=== PATIENT | male | born 1980 | race Caucasian/White ===

== ENCOUNTER 2018-08-09 10:31 | Observation (INO) ==
[2018-08-09] MEDS ORDERED: Aspirin 325 MG Tablet PO ONE (11:20)
[2018-08-09 11:40] LABS: Baso # (Auto) 0.1 th/mm3 (0.0-0.2); Baso % (Auto) 0.9 % (0.0-2.0); Eos # (Auto) 0.2 th/mm3 (0.0-0.4); Eos % (Auto) 3.5 % (0.0-4.0); Hematocrit 43.8 % (39.0-51.0); Hemoglobin 15.3 gm/dL (13.0-17.0); Lymph # (Auto) 2.2 th/mm3 (1.0-4.8); Lymph % (Auto) 38.1 % (9.0-44.0); Mean Corpuscular HGB Conc 34.8 % (32.0-36.0); Mean Corpuscular Hemoglobin 26.4 pg (27.0-34.0); Mean Corpuscular Volume 75.8 fL (80.0-100.0); Mean Platelet Volume 8.2 fL (7.0-11.0); Mono # (Auto) 0.5 th/mm3 (0.0-0.9); Mono % (Auto) 9.4 % (0.0-8.0); Neut # (Auto) 2.8 th/mm3 (1.8-7.7); Neut % (Auto) 48.1 % (16.0-70.0); Platelet Count 138 th/mm3 (150-450); Red Blood Count 5.78 mil/mm3 (4.50-5.90); Red Cell Distribution Width 13.8 % (11.6-17.2); White Blood Count 5.7 th/mm3 (4.0-11.0)
--- NOTE | 2018-08-09 11:43 | XR ---
EXAM DATE: 08/09/2018 11:36 AM EST AGE/SEX: 38 years / Male INDICATIONS: Left sided numbness in upper abdomen, chest, arm, and neck. CLINICAL DATA: This is the patient's initial encounter. Patient reports that signs and symptoms have been present for 1 day and indicates a pain score of 0/10. MEDICAL/SURGICAL HISTORY: None. None. COMPARISON: No prior exams available for comparison. FINDINGS: A single AP view of the chest demonstrates the lungs to be symmetrically aerated without evidence of mass, infiltrate or effusion. The cardiomediastinal contours are unremarkable. Osseous structures a re intact. CONCLUSION: No acute intrathoracic disease. Electronically signed by: Luis Perez MD 08/09/2018 11:42 AM EST
[2018-08-09 11:47] LABS: Activated Partial Thrombo Time 29.8 sec (23.4-31.7); Prothrombin Time 10.1 sec (9.8-11.6)
[2018-08-09 11:58] LABS: Alanine Aminotransferase 61 U/L (12-78); Albumin 4.2 g/dL (3.4-5.0); Anion Gap 6 meq/L (5-15); Aspartate Aminotransferase 35 U/L (15-37); Blood Urea Nitrogen 16 mg/dL (7-18); Calcium 9.4 mg/dL (8.5-10.1); Carbon Dioxide 23.9 meq/L (21.0-32.0); Chloride 107 meq/L (98-107); Glomerular Filtration Rate Greater Than 89 mL/min (>89); Glucose,Random 120 mg/dL (74-106); Lipase 208 U/L (73-393); Sodium 137 meq/L (136-145)
[2018-08-09 12:03] LABS: Alkaline Phosphatase 61 U/L (45-117); Creatine Kinase 210 U/L (39-308); Total Protein 7.5 g/dL (6.4-8.2)
[2018-08-09 12:15] LABS: Creatine Kinase MB 2.2 ng/mL (0.5-3.6)
[2018-08-09] MEDS ORDERED: Acetaminophen 500 MG Tablet PO PRN (13:15)
--- NOTE | 2018-08-09 13:19 | ED ---
HPI General Chief Complaint: Chest Pain Stated Complaint: Tightness chest /left arm complaint/light headed Time Seen by Provider: 08/09/18 11:11 Source: patient and family Mode of arrival: ambulatory Limitations: no limitations History of Present Illness HPI narrative: 38-year-old male who presents to the ED for chest pain. Patient has had chest pain for about 1 hour. Per patient he is traveling from [place] to [place] where he is from. Per patient he came here for vacation for the break. Per patient he has had similar pain in the past when he had a panic attack but he states that this pain feels different in that it is burning and pressure-like and usually when he gets the panic attack is throughout the entire chest and he feels short of breath. He states that he is never radiated to the left arm before into his jaw. Patient currently he is pain-free. Per patient he was pressure-like in the pain was 7 out of 10. was concerned because he did look pale per her. Patient has been also complaining of dizziness that he has had on and off for the past month or so. Per patient he seems to be getting worse and he states that he has been treated for vertigo in the past with success but he feels that this is different as it is getting more progressive with exertion and he feels lightheaded rather than feeling like the room spinning. Related Data Home Medications Medication Instructions Recorded Confirmed No Known Home Medications 08/09/18 08/09/18 Allergies Allergy/AdvReac Type Severity Reaction Status Date / Time Penicillins Allergy Hives Verified 08/09/18 10:40 Review of Systems ROS: all other systems reviewed are negative [facility] Medical History Medical History Anxiety (Acute) Chronic back pain (Acute) Depression (Acute) Vertigo (Acute) Surgical History Surgical History No history of previous surgery (Acute) Family History Family History Mother Hypertension Father Hypertension Social History Social History Substance History: No History of Abuse Second Hand Smoke Exposure: No Smoking Status: Never smoker How Often Do You Have a Drink Containing Alcohol: Monthly or less Hx Recent Travel: Yes (Drove from [place], 14 hour trip week and a half ago) Recent Travel in [facility] within the Last 8 Weeks: No Recent Out of Country Travel within the Last 8 Weeks: No Immunization History Tetanus Immunization: <5 Years Exam Narrative Exam Narrative: GENERAL: Well appearing SKIN: Focused skin assessment warm/dry. HEAD: Atraumatic. Normocephalic. EYES: Pupils equal and round. No scleral icterus. No injection or drainage. ENT: No nasal bleeding or discharge. Mucous membranes pink and moist. Tongue is midline. No Uvula deviation. NECK: Trachea midline. No JVD. CARDIOVASCULAR: Regular rate and rhythm. No murmur appreciated. RESPIRATORY: No accessory muscle use. Clear to auscultation. Breath sounds equal bilaterally. GASTROINTESTINAL: Abdomen soft, non-tender, nondistended. Hepatic and splenic margins not palpable. MUSCULOSKELETAL: No obvious deformities. No clubbing. No cyanosis. No edema. Full range of motion of the upper and lower extremity bilaterally. 2+ pulses bilaterally. NEUROLOGICAL: Awake and alert. No obvious cranial nerve deficits. Motor grossly within normal limits. Normal speech. PSYCHIATRIC: Appropriate mood and affect; insight and judgment normal. Course Initial Documented Vital Signs Temperature 98.5 F 08/09/18 10:38 Pulse Rate 79 08/09/18 10:38 Respiratory Rate 18 08/09/18 10:38 Blood Pressure 151/84 H 08/09/18 10:38 Pulse Oximetry 98 08/09/18 10:38 Last Documented Vital Signs Temperature 98.3 F 08/09/18 14:23 Pulse Rate 73 08/09/18 14:23 Respiratory Rate 20 08/09/18 14:23 Blood Pressure 124/74 08/09/18 14:23 Pulse Oximetry 96 08/09/18 14:23 Medical Decision Making DALIA Attestation DALIA supervised visit: Yes Attestation: I, Dr. Paz, have reviewed the advance practice practitioner's documentation and am in agreement, met with the patient face to face, made the diagnosis, and the medical decision making was done by me. *My assessment and Findings: Chest pain MDM Narrative Medical decision making narrative: 38-year-old male who presents to the ED for evaluation of chest pain. Patient was properly examined was found to have signs and symptoms concerning for ACS. He does have risk factors. Labs and imaging were done and were essentially unremarkable. D-dimer was done as patient has been traveling by car. This was negative. Patient was given aspirin here. No nitro given as patient is completely chest pain-free. Initial EKG and troponin were negative. I had a discussion with my attending Dr. Paz who agrees the patient should be of her chest pain center admission. This was offered to the patient and the family. At this time they appear to be agreeable with admission to the chest pain center. Patient was admitted to the chest pain center by me. Medical Screen Exam Complete: Yes Emergency Medical Condition: Yes Differential Diagnosis Differential Diagnosis: Chest pain versus ACS versus atypical chest pain versus PE Medical Records Medical records reviewed: Yes I reviewed the patient's medical records. Lab Data Lab results reviewed: Yes I reviewed the patient's lab results. Lab results narrative: Troponin and CK-MB negative Result diagrams: 08/09/18 11:25 08/09/18 11:25 Lab Results 08/09/18 08/09/18 08/09/18 Range/Units 11:25 11:25 11:25 WBC 5.7 (4.0-11.0) th/mm3 RBC 5.78 (4.50-5.90) mil/mm3 Hgb 15.3 (13.0-17.0) gm/dL Hct 43.8 (39.0-51.0) % MCV 75.8 L (80.0-100.0) fL MCH 26.4 L (27.0-34.0) pg MCHC 34.8 (32.0-36.0) % RDW 13.8 (11.6-17.2) % Plt Count 138 L (150-450) th/mm3 MPV 8.2 (7.0-11.0) fL Neut % (Auto) 48.1 (16.0-70.0) % Lymph % (Auto) 38.1 (9.0-44.0) % Ashley % (Auto) 9.4 H (0.0-8.0) % Eos % (Auto) 3.5 (0.0-4.0) % Baso % (Auto) 0.9 (0.0-2.0) % Neut # (Auto) 2.8 (1.8-7.7) th/mm3 Lymph # (Auto) 2.2 (1.0-4.8) th/mm3 Ashley # (Auto) 0.5 (0.0-0.9) th/mm3 Eos # (Auto) 0.2 (0.0-0.4) th/mm3 Baso # (Auto) 0.1 (0.0-0.2) th/mm3 WBC Differential . Differential Comment Auto diff final PT 10.1 (9.8-11.6) sec INR 1.0 Ratio APTT 29.8 (23.4-31.7) sec D-Dimer Quant (PE/DVT) Less than 0.19 (0.00-0.50) mg/L FEU Sodium 137 (136-145) meq/L Potassium 4.0 (3.5-5.1) meq/L Chloride 107 (98-107) meq/L Carbon Dioxide 23.9 (21.0-32.0) meq/L Anion Gap 6 (5-15) meq/L BUN 16 (7-18) mg/dL Creatinine 0.87 (0.60-1.30) mg/dL Estimated GFR Greater than 89 (>89) mL/min Random Glucose 120 H (74-106) mg/dL Calcium 9.4 (8.5-10.1) mg/dL Total Bilirubin 0.4 (0.2-1.0) mg/dL AST 35 (15-37) U/L ALT 61 (12-78) U/L Alkaline Phosphatase 61 (45-117) U/L Total Creatine Kinase 210 (39-308) U/L CK-MB (CK-2) 2.2 (0.5-3.6) ng/mL Troponin I Less than 0.02 L (0.02-0.05) ng/mL Total Protein 7.5 (6.4-8.2) g/dL Albumin 4.2 (3.4-5.0) g/dL Lipase 208 (73-393) U/L 08/09/18 Range/Units 14:24 WBC (4.0-11.0) th/mm3 RBC (4.50-5.90) mil/mm3 Hgb (13.0-17.0) gm/dL Hct (39.0-51.0) % MCV (80.0-100.0) fL MCH (27.0-34.0) pg MCHC (32.0-36.0) % RDW (11.6-17.2) % Plt Count (150-450) th/mm3 MPV (7.0-11.0) fL Neut % (Auto) (16.0-70.0) % Lymph % (Auto) (9.0-44.0) % Ashley % (Auto) (0.0-8.0) % Eos % (Auto) (0.0-4.0) % Baso % (Auto) (0.0-2.0) % Neut # (Auto) (1.8-7.7) th/mm3 Lymph # (Auto) (1.0-4.8) th/mm3 Ashley # (Auto) (0.0-0.9) th/mm3 Eos # (Auto) (0.0-0.4) th/mm3 Baso # (Auto) (0.0-0.2) th/mm3 WBC Differential Differential Comment PT (9.8-11.6) sec INR Ratio APTT (23.4-31.7) sec D-Dimer Quant (PE/DVT) (0.00-0.50) mg/L FEU Sodium (136-145) meq/L Potassium (3.5-5.1) meq/L Chloride (98-107) meq/L Carbon Dioxide (21.0-32.0) meq/L Anion Gap (5-15) meq/L BUN (7-18) mg/dL Creatinine (0.60-1.30) mg/dL Estimated GFR (>89) mL/min Random Glucose (74-106) mg/dL Calcium (8.5-10.1) mg/dL Total Bilirubin (0.2-1.0) mg/dL AST (15-37) U/L ALT (12-78) U/L Alkaline Phosphatase (45-117) U/L Total Creatine Kinase 176 (39-308) U/L CK-MB (CK-2) (0.5-3.6) ng/mL Troponin I Less than 0.02 L (0.02-0.05) ng/mL Total Protein (6.4-8.2) g/dL Albumin (3.4-5.0) g/dL Lipase (73-393) U/L Imaging Data Attestation: I personally reviewed and interpreted this imaging study as follows : Radiologist's impression: Chest X-Ray 08/09/18 11:20 CONCLUSION: No acute intrathoracic disease. ECG Data Attestation: I personally reviewed and interpreted this ECG as follows: Interpretation: EKG shows sinus rhythm with no sign of acute ischemia and arrhythmia with by me and attending. Discharge Plan Discharge Disposition Patient Disposition: 30 Still Patient Discharge Condition Condition: Good Discharge Order Discharge Orders: Discharge Order (Routine); Ordered 08/09/18 Ordered By: Aleja Pace Discharge Details Anticipated Discharge Date: 08/09/18 Diagnosis: Chest pain, rule out acute myocardial infarction Physicians Team ED Provider: Cirilo Paz ED Midlevel Provider: João Hurd Primary Care Provider: [facility] Attending Provider: Nikhil Mercado Status ED Status: Left Department Discharge Information Discharge Date/Time: 08/09/18 14:15
[2018-08-09 14:24] VITALS: BP 124/74; PULSE 73; RESP 20; TEMP 98.3; O2SAT 96
--- NOTE | 2018-08-09 14:38 | P.HPCA ---
History of Present Illness Primary Care Physician: [facility] Chief Complaint: Chest pain History of Present Illness: 38 year old male with history of chronic back pain, anxiety, and depression present to ER for further evaluation of chest pain. He, his and 6 children are returning home to [place] after visiting [place] for Thanksgiving. While driving he developed chest pain. Onset 1000. Location left anterior chest. Characterized as tightness with an associated heat/chilling sensation from left upper quad which radiated to left anterior chest, left side neck, left shoulder and arm. No weakness of arm. Moderate in severity. No associated symptoms of nausea, vomiting, dyspnea, or diaphoresis. Experienced a metallic taste during episode. reports him looking pale. No precipitating or relieving factors. Denies similar pain in the past. Endorses history of panic attacks, however current episode did not remind him of past panic attacks. No current chest pain, reports discomfort eased up gradually. Since episode experiencing intermittent, short "waves" of heat described as barely noticeable. Reports being in his general state of health with an increase in fatigue and dizzy spells the last month. History of vertigo and denies dizziness being similar. No precipitating factors to dizziness, but endorses dizziness can be positional. No fever, chills, recent illness, or injury. Does not feel he currently is under increase stress. Does report an increase stress this year, but felt he was coping and dealing well with stress. Does not take any medication for anxiety or depression due to being sensitive to most medication. Past cardiac testing None Social history No known hypertension, hyperlipidemia, or diabetes. Lifelong non-smoker. Occasional alcohol use socially on weekends, drinking between 2-3 beers. No recreational drug use. . 6 children. Endorses active lifestyle, however often limited due to chronic back pain. Family history Noncontributory for early onset cardiovascular disease - Diagnosis (1) Chest pain of unknown etiology Review of Systems All other systems reviewed negative except as stated in HPI [facility] - History History Provided By: Patient - Medical History Medical History: Medical History (Last Updated 08/09/18 @ 14:31 by SONNY Stanford) Anxiety Chronic back pain Depression Vertigo - Surgical History Surgical History: Surgical History (Last Reviewed 08/09/18 @ 14:33 by SONNY Stanford) No history of previous surgery - Family History Family History: Family History (Last Updated 08/09/18 @ 14:33 by SONNY Stanford) Mother Hypertension Father Hypertension - Social History I have reviewed the patient's Social History: Yes - Tobacco History Second Hand Smoke Exposure: No Tobacco Use In Past 30 Days: No Smoking Status: Never smoker - Alcohol History How Often Do You Have a Drink Containing Alcohol: 2 to 4 times a month (2-3 beers on weekends) - Substance Use History Substance History: No History of Abuse - Travel History History of Recent Travel: Yes (Drove from [place], 14 hour trip week and a half ago) Recent Travel in the [facility] Within the Last 8 Weeks: No Recent Travel Out of the Country Within the Last 8 Weeks: No - Immunization History Tetanus Immunization: <5 Years Medications and Allergies Active Medications: Active Medications Acetaminophen (Tylenol) 500 mg PO Q4H PRN PRN Reason: HEADACHE Aspirin (Aspirin) 325 mg PO DAILY BONNIE Nitroglycerin (Nitrostat Sl) 0.4 mg SL Q5M PRN PRN Reason: CHEST PAIN Ondansetron HCl (Zofran Inj) 4 mg IV.PUSH Q6H PRN PRN Reason: NAUSEA Sodium Chloride (Ns Flush) 2 ml IV.FLUSH BID BONNIE Sodium Chloride (Ns Flush) 2 ml IV.FLUSH PRN PRN PRN Reason: FLUSH AFTER USING IV ACCESS Allergies Allergy/AdvReac Type Severity Reaction Status Date / Time Penicillins Allergy Hives Verified 08/09/18 10:40 Home Medications Medication Instructions Recorded Confirmed Type No Known Home Medications 08/09/18 08/09/18 History Exam Vital signs: Vital Signs 08/09/18 10:38 08/09/18 10:40 Temperature 98.5 F Pulse Rate 79 82 Respiratory Rate 18 19 Blood Pressure 151/84 H 138/89 Pulse Oximetry 98 98 Intake & Output 08/08/18 08/09/18 08/09/18 18:59 06:59 18:59 Weight 108.862 kg Narrative: GENERAL: Alert WN, WD, NAD, pleasant, mildly, male who appears older than stated age HEAD: NC, AT EYES: Sclera clear, conjunctiva without injection, pupils equal and round ENT: Mucous membranes pink and moist CV: RRR, without murmur, rub, gallop, no JVD, S1-S2. Chest wall nontender to palpation. RESP: Clear lungs throughout bilateral, no crackles, wheeze, rhonchi, symmetrical chest rise, nonlabored, able to speak in full sentences ABD: Soft, NT, ND, no masses, positive bowel tones EXT: Pulses +2x4, no dependent edema MS: Normal tone x4 extremities, nontender, no obvious deformities, full range of motion NEURO: CN II through CN XII grossly intact, motor strength 5/5 PSYCH: A+O x3, pleasant affect, appropriate speech, mood, insight and judgment SKIN: Normal turgor, normal texture, no lesions, no rashes, brisk cap refill, even hair distribution Results 08/09/18 11:25 08/09/18 11:25 Cardiac Enzymes 08/09/18 Range/Units 11:25 AST 35 (15-37) U/L CK-MB (CK-2) 2.2 (0.5-3.6) ng/mL Troponin I Less than 0.02 L (0.02-0.05) ng/mL Coagulation 08/09/18 Range/Units 11:25 PT 10.1 (9.8-11.6) sec APTT 29.8 (23.4-31.7) sec CBC 08/09/18 Range/Units 11:25 WBC 5.7 (4.0-11.0) th/mm3 RBC 5.78 (4.50-5.90) mil/mm3 Hgb 15.3 (13.0-17.0) gm/dL Hct 43.8 (39.0-51.0) % Plt Count 138 L (150-450) th/mm3 Neut # (Auto) 2.8 (1.8-7.7) th/mm3 Lymph # (Auto) 2.2 (1.0-4.8) th/mm3 Bremer # (Auto) 0.5 (0.0-0.9) th/mm3 Eos # (Auto) 0.2 (0.0-0.4) th/mm3 Baso # (Auto) 0.1 (0.0-0.2) th/mm3 Comprehensive Metabolic Panel 08/09/18 Range/Units 11:25 Sodium 137 (136-145) meq/L Potassium 4.0 (3.5-5.1) meq/L Chloride 107 (98-107) meq/L Carbon Dioxide 23.9 (21.0-32.0) meq/L BUN 16 (7-18) mg/dL Creatinine 0.87 (0.60-1.30) mg/dL Calcium 9.4 (8.5-10.1) mg/dL AST 35 (15-37) U/L ALT 61 (12-78) U/L Alkaline Phosphatase 61 (45-117) U/L Total Protein 7.5 (6.4-8.2) g/dL Albumin 4.2 (3.4-5.0) g/dL Intake and Output 08/08/18 08/09/18 08/09/18 22:59 06:59 14:59 Other: Weight 108.862 kg Patient Weight 08/10/18 06:59 Weight 108.862 kg - Imaging and Cardiology Imaging: Impressions Chest X-Ray 08/09/18 11:20 CONCLUSION: No acute intrathoracic disease. EKG interpretations - EKG EKG results cardiology: sinus rhythm, normal ST/T Caprini VTE Risk Assessment Caprini VTE Risk Assessment: No/Low Risk (score <= 1) Caprini Risk Assessment Model: Point Value = 1 Point Value = 2 Point Value = 3 Point Value = 5 Age 41-60 Minor surgery BMI > 25 kg/m2 Swollen legs Varicose veins or History of unexplained or recurrent spontaneous Oral contraceptives or hormone replacement Sepsis (< 1 month) Serious lung disease, including pneumonia (< 1 month) Abnormal pulmonary function Acute myocardial infarction Congestive heart failure (< 1 month) History of inflammatory bowel disease Medical patient at bed rest Age 61-74 Arthroscopic surgery Major open surgery (> 45 min) Laparoscopic surgery (> 45 min) Malignancy Confined to bed (> 72 hours) Immobilizing plaster cast Central venous access Age >= 75 History of VTE Family history of VTE Factor V Leiden Prothrombin 42948C Lupus anticoagulant Anticardiolipin antibodies Elevated serum homocysteine Heparin-induced thrombocytopenia Other congenital or acquired thrombophilia Stroke (< 1 month) Elective arthroplasty Hip, pelvis, or leg fracture Acute spinal cord injury (< 1 month) Prophylaxis Regimen: Total Risk Factor Score Risk Level Prophylaxis Regimen 0-1 Low Early ambulation 2 Moderate Order ONE of the following: *Sequential Compression Device (SCD) *Heparin 5000 units SQ BID 3-4 Higher Order ONE of the following medications: *Heparin 5000 units SQ TID *Enoxaparin/Lovenox 40 mg SQ daily (WT < 150 kg, CrCl > 30 mL/min) *Enoxaparin/Lovenox 30 mg SQ daily (WT < 150 kg, CrCl > 10-29 mL/min) *Enoxaparin/Lovenox 30 mg SQ BID (WT < 150 kg, CrCl > 30 mL/min) AND/OR *Sequential Compression Device (SCD) 5 or more Highest Order ONE of the following medications: *Heparin 5000 units SQ TID (Preferred with Epidurals) *Enoxaparin/Lovenox 40 mg SQ daily (WT < 150 kg, CrCl > 30 mL/min) *Enoxaparin/Lovenox 30 mg SQ daily (WT < 150 kg, CrCl > 10-29 mL/min) *Enoxaparin/Lovenox 30 mg SQ BID (WT < 150 kg, CrCl > 30 mL/min) AND *Sequential Compression Device (SCD) Assessment and Plan - Assessment (1) Chest pain of unknown etiology Code(s): R07.89 - Other chest pain Status: Acute Plan: Admit to chest pain center. Continue ruling out ACS with 3 sets of EKGs and cardiac enzymes. Will be seen and evaluated by Dr. Nikhil Beard. Likely will proceed with exercise cardiac testing after being ruled out. This will be determined after evaluation by floor nurse. Patient and verbalized understanding and both are agreeable to plan of care. Patient requesting stress test prior to discharge he and his family are driving 14 hours to [place] tomorrow.
[2018-08-09 14:55] LABS: Creatine Kinase 176 U/L (39-308)
--- NOTE | 2018-08-09 16:01 | P.PNCA ---
Subjective Interval history: 38-year-old patient seen in concert with his practitioner. The history is as recorded with the additional information that the patient has been under considerable stress and recognizes that this may be a panic attack although it somewhat different from his previous. He states however that he feels that he needs to now if this is just another panic attack. Significant discussion was carried out regarding his stress, his ongoing physical management through the [facility] in [facility], and his need to address his lifestyle. He has receptive to this discussion. At this point he is ruled out, in spite of his disability for his back he is capable of walking and will be evaluated with an exercise stress test. If negative as expected he will be discharged to return to his care through the [facility] in [facility]. Medications and Allergies Active Medications: Active Medications Acetaminophen (Tylenol) 500 mg PO Q4H PRN PRN Reason: HEADACHE Aspirin (Aspirin) 325 mg PO DAILY BONNIE Nitroglycerin (Nitrostat Sl) 0.4 mg SL Q5M PRN PRN Reason: CHEST PAIN Ondansetron HCl (Zofran Inj) 4 mg IV.PUSH Q6H PRN PRN Reason: NAUSEA Sodium Chloride (Ns Flush) 2 ml IV.FLUSH BID BONNIE Sodium Chloride (Ns Flush) 2 ml IV.FLUSH PRN PRN PRN Reason: FLUSH AFTER USING IV ACCESS Allergies Allergy/AdvReac Type Severity Reaction Status Date / Time Penicillins Allergy Hives Verified 08/09/18 10:40 Home Medications Medication Instructions Recorded Confirmed Type No Known Home Medications 08/09/18 08/09/18 History Physical Exam Vital signs: Vital Signs 08/09/18 10:38 08/09/18 10:40 08/09/18 14:23 Temperature 98.5 F 98.3 F Pulse Rate 79 82 73 Respiratory Rate 18 19 20 Blood Pressure 151/84 H 138/89 124/74 Pulse Oximetry 98 98 96 Intake & Output 08/08/18 08/09/18 08/09/18 18:59 06:59 18:59 Weight 108.862 kg Narrative: Well-nourished well-developed man resting comfortably with no pain at the current time Head normocephalic atraumatic Eyes PERRLA EOMI sclera clear Ears patient has a history of perforated eardrum with some problems with vertigo however he stable at this time and further exam was not carried out Neck supple no JVD masses nodes or bruits Chest clear to auscultation with no rales wheezes or rhonchi Cardiovascular regular sinus rhythm no gallops rubs or murmurs Abdomen soft nontender no guarding or rebound Results 08/09/18 11:25 08/09/18 11:25 Cardiac Enzymes 08/09/18 08/09/18 Range/Units 11:25 14:24 AST 35 (15-37) U/L CK-MB (CK-2) 2.2 (0.5-3.6) ng/mL Troponin I Less than 0.02 L Less than 0.02 L (0.02-0.05) ng/mL Coagulation 08/09/18 Range/Units 11:25 PT 10.1 (9.8-11.6) sec APTT 29.8 (23.4-31.7) sec CBC 08/09/18 Range/Units 11:25 WBC 5.7 (4.0-11.0) th/mm3 RBC 5.78 (4.50-5.90) mil/mm3 Hgb 15.3 (13.0-17.0) gm/dL Hct 43.8 (39.0-51.0) % Plt Count 138 L (150-450) th/mm3 Neut # (Auto) 2.8 (1.8-7.7) th/mm3 Lymph # (Auto) 2.2 (1.0-4.8) th/mm3 Gilchrist # (Auto) 0.5 (0.0-0.9) th/mm3 Eos # (Auto) 0.2 (0.0-0.4) th/mm3 Baso # (Auto) 0.1 (0.0-0.2) th/mm3 Comprehensive Metabolic Panel 08/09/18 Range/Units 11:25 Sodium 137 (136-145) meq/L Potassium 4.0 (3.5-5.1) meq/L Chloride 107 (98-107) meq/L Carbon Dioxide 23.9 (21.0-32.0) meq/L BUN 16 (7-18) mg/dL Creatinine 0.87 (0.60-1.30) mg/dL Calcium 9.4 (8.5-10.1) mg/dL AST 35 (15-37) U/L ALT 61 (12-78) U/L Alkaline Phosphatase 61 (45-117) U/L Total Protein 7.5 (6.4-8.2) g/dL Albumin 4.2 (3.4-5.0) g/dL Intake and Output 08/09/18 08/09/18 08/09/18 06:59 14:59 22:59 Other: Weight 108.862 kg Patient Weight 08/10/18 06:59 Weight 108.862 kg - Imaging and Cardiology Imaging: Impressions Chest X-Ray 08/09/18 11:20 CONCLUSION: No acute intrathoracic disease. Assessment and Plan - Assessment (1) Chest pain of unknown etiology Code(s): R07.89 - Other chest pain Status: Acute Plan: Admit to chest pain center. Continue ruling out ACS with 3 sets of EKGs and cardiac enzymes. Will be seen and evaluated by Dr. Nikhil Beard. Likely will proceed with exercise cardiac testing after being ruled out. This will be determined after evaluation by delinquent account clerk. Patient and verbalized understanding and both are agreeable to plan of care. Patient requesting stress test prior to discharge he and his family are driving 14 hours to [place] tomorrow. Decision making was discussed and above is per my recommendation
[2018-08-10] MEDS ORDERED: Aspirin 325 MG Tablet PO SCH (09:00)
--- NOTE | 2018-08-10 11:22 | ECG ---
Date Performed: 08/09/2018 Time Performed: 11:02:30 PTAGE: 38 years EKG: Sinus rhythm MODERATE INTRAVENTRICULAR CONDUCTION DELAY VOLTAGE CRITERIA FOR LVH ABNORMAL ECG NO PREVIOUS TRACING DOCTOR: Nikhil Mercado Interpretating Date/Time 08/10/2018 11:20:15
--- NOTE | 2018-08-10 11:22 | ECG ---
Date Performed: 08/09/2018 Time Performed: 14:29:16 PTAGE: 38 years EKG: Sinus rhythm MODERATE INTRAVENTRICULAR CONDUCTION DELAY MODERATE VOLTAGE CRITERIA FOR LVH, CONSIDER NORMAL VARIAN T BORDERLINE ECG INTERPRETATION BASED ON A DEFAULT AGE OF 38 YEARS No significant change PREVIOUS TRACING : 08/09/2018 11.02 DOCTOR: Nikhil Mercado Interpretating Date/Time 08/10/2018 11:19:50
--- NOTE | 2018-08-10 11:24 | TR ---
Date Performed: 08/09/2018 Time Performed: 16:28:33 DOCTOR: Nikhil Mercado DRUG LIST: CLINICAL HISTORY: ACUTE CHEST PAIN REASON FOR TEST: ACUTE CHEST PAIN REASON FOR ENDING: OBSERVATION: CONCLUSION: Ivan protocol completed. Stopped sec to exceeding target heart rate and leg fatigue . Maximum ZZ=733 Max HR Achieved=90.0 Maximum DG=780/90 Total Exercise Time=9:01. No reprod chest dis comfort. No ectopy. Upsloping st segments. Good exercise tolerance. Normal bp response. Upon stopping exam reported dizziness which quickly resolved. Recovery quick and unremarkable. COMMENTS: Good exercise capacity with no symptoms and no significant EKG changes represents a lo w probability of clinically significant ischemic heart disease
== END 2018-08-09 17:30 | disposition home or self-care (01) ==
LOC: NEPC 10:31 → NEDA 10:31 → NEPFCDU 14:12
PROVIDERS: ADMIT Internal Medicine Interventional Cardiology; ATTEND Internal Medicine Interventional Cardiology